=== PATIENT | female | born 1990 | race Caucasian/White ===

== ENCOUNTER 2024-05-05 20:47 | Emergency (ER) | payer OTHER ==
[~2024-05-05] VITALS: Ht 162.6 cm; Wt 134.0 kg
[~2024-05-05 20:47] MED LIST: INSU100I28 SQ
[2024-05-05 20:52] VITALS: BP 118/74; PULSE 110; RESP 16; TEMP 98.3; O2SAT 98
[2024-05-05] MEDS: ONDANSETRON 4MG ODT PO ONE (23:27)
[2024-05-06 00:14] LABS: BASOPHILS % 0.7 % (0.0-2.0); DIFFERENTIAL COMMENT 0; EOSINOPHILS % 4.7 % (0.0-5.0); HEMATOCRIT. 28.5 % (36.0-48.0); HEMOGLOBIN. 8.7 g/dL (12.0-16.0); LYMPHOCYTES % 15.4 % (20.0-50.0); MEAN CORPUSCULAR HEMOGLOBIN 23.9 pg (28.0-32.0); MEAN CORPUSCULAR HGB CONC 30.7 g/dL (31.0-37.0); MEAN CORPUSCULAR VOLUME 77.8 fL (81.0-99.0); MEAN PLATELET VOLUME 7.6 fl (7.4-10.4); MONOCYTES % 5.9 % (2.0-8.0); NEUTROPHILS % 73.3 % (40.0-76.0); PLATELET 577 x1000/uL (130-400); RED BLOOD CELL COUNT 3.66 mill/uL (4.2-5.4); RED CELL DISTRIBUTION WIDTH 16.7 % (11.6-14.6); WHITE BLOOD COUNT 11.6 x1000/uL (4.5-11.0)
[2024-05-06 00:19] LABS: CHLORIDE 110 mEq/L (98-107); SODIUM 137 mEq/L (136-145)
[2024-05-06 00:32] LABS: CALCIUM 7.8 mg/dL (8.7-10.4); CARBON DIOXIDE 17 mEq/L (21-32)
[2024-05-06 00:37] LABS: GLUCOSE 189 mg/dL (70-105); UREA NITROGEN BLOOD 42 mg/dL (9-23)
[2024-05-06 00:41] LABS: BETA HYDROXYBUTYRATE < 0.1 mMol/L (0.0-0.3); CREATININE 1.9 mg/dL (0.6-1.0)
[2024-05-06 01:15] LABS: HCG SCREEN NEGATIVE
== END 2024-05-06 04:29 | disposition home or self-care (01) ==
LOC: ER 20:47
DX: E11.65 Type 2 diabetes mellitus with hyperglycemia (principal); R11.2 Nausea with vomiting, unspecified; F15.10 Other stimulant abuse, uncomplicated; Z20.822 Contact with and (suspected) exposure to COVID-19
CPT/HCPCS: 99283; 87426; 80048; 82010; 82962; 84703; 85025; 87804 ×2; 36415; Q0162

== ENCOUNTER 2024-06-02 18:20 | Emergency (ER) | payer OTHER ==
[~2024-06-02] VITALS: Ht 162.6 cm; Wt 69.0 kg
[2024-06-02 18:22] VITALS: O2SAT 99
[2024-06-02] MEDS: KETOROLAC 30MG/ML VIAL IV STA (19:30)
[2024-06-02 19:41] LABS: BASOPHILS % 0.6 % (0.0-2.0); DIFFERENTIAL COMMENT 0; EOSINOPHILS % 3.2 % (0.0-5.0); HEMATOCRIT. 25.3 % (36.0-48.0); HEMOGLOBIN. 7.7 g/dL (12.0-16.0); LYMPHOCYTES % 18.8 % (20.0-50.0); MEAN CORPUSCULAR HEMOGLOBIN 23.8 pg (28.0-32.0); MEAN CORPUSCULAR HGB CONC 30.4 g/dL (31.0-37.0); MEAN CORPUSCULAR VOLUME 78.3 fL (81.0-99.0); MEAN PLATELET VOLUME 7.9 fl (7.4-10.4); MONOCYTES % 7.9 % (2.0-8.0); NEUTROPHILS % 69.5 % (40.0-76.0); PLATELET 466 x1000/uL (130-400); RED BLOOD CELL COUNT 3.23 mill/uL (4.2-5.4); RED CELL DISTRIBUTION WIDTH 19.5 % (11.6-14.6); WHITE BLOOD COUNT 9.1 x1000/uL (4.5-11.0)
[2024-06-02 19:45] LABS: CARBON DIOXIDE 24 mEq/L (21-32); CHLORIDE 108 mEq/L (98-107); POTASSIUM 4.5 mEq/L (3.5-5.1); SODIUM 135 mEq/L (136-145)
[2024-06-02 19:46] LABS: ADD RBC MORPHOLOGY YES
[2024-06-02] MEDS: SODIUM CHLORIDE 0.9% 1000ML BAG (SEPSIS BOLUS) IV ONE (19:46)
[2024-06-02] MEDS: METRONIDAZOLE 500 MG PREMIX 100 ML IV ONE (19:46)
[2024-06-02 19:51] LABS: GLUCOSE 285 mg/dL (70-105); UREA NITROGEN BLOOD 30 mg/dL (9-23)
[2024-06-02 19:52] LABS: ALANINE AMINOTRANSFERASE 9 IU/L (10-49); ASPARTATE AMINOTRANSFERASE 12 IU/L (<34)
[2024-06-02 19:53] LABS: ALBUMIN 3.2 g/dL (3.2-4.8); BILIRUBIN TOTAL 0.2 mg/dL (0.1-1.0); PROTEIN TOTAL 7.4 g/dL (6.0-8.3)
[2024-06-02 20:04] LABS: HCG SCREEN NEGATIVE
[2024-06-02 20:07] LABS: MICROCYTOSIS 1+; PLATELET ESTIMATE INCREASED
[2024-06-02 20:08] LABS: HYPOCHROMASIA 1+
[2024-06-02 20:31] LABS: CREATININE 1.3 mg/dL (0.6-1.0)
[2024-06-02] MEDS: CEFTRIAXONE 1GM/50ML 50 ML IV ONE (21:50)
[2024-06-02 21:57] LABS: CLARITY URINE CLEAR (CLEAR); COLOR URINE YELLOW (YELLOW); GLUCOSE URINE 3+ (NEGATIVE); KETONES URINE NEGATIVE (NEGATIVE); LEUKOCYTE ESTERASE URINE NEGATIVE (NEGATIVE); NITRITE URINE NEGATIVE (NEGATIVE); OCCULT BLOOD URINE TRACE (NEGATIVE); PROTEIN URINE 3+ (NEGATIVE); SPECIFIC GRAVITY URINE 1.026 (1.005-1.030); UROBILINOGEN URINE 0.2 E.U./dL (0.2-1.0)
[2024-06-02 22:09] LABS: BACTERIA URINE NONE SEEN; SQUAMOUS EPITHELIAL CELL URINE FEW /lpf (RARE/1+); WBC URINE 0-2 /hpf (0-2)
[2024-06-03] MEDS: KETOROLAC 15MG/ML VIAL IV ONE (01:33)
[2024-06-03] MEDS ORDERED: CLONIDINE 0.1MG TABLET PO PRN (02:15)
[2024-06-03] MEDS ORDERED: LORAZEPAM 0.5MG TABLET PO PRN (02:15)
[2024-06-03] MEDS ORDERED: DEXTROSE 50% WATER 50ML SYRINGE IV PRN (02:15)
[2024-06-03] MEDS ORDERED: DEXT 5%/0.9% NACL 1,000 ML IV NR (02:15)
[2024-06-03] MEDS ORDERED: IPRATROPIUM/ALBUTEROL 0.5-3(2.5)MG/3ML NEB HHN PRN (02:15)
[2024-06-03] MEDS ORDERED: ACETAMINOPHEN 325MG TABLET PO PRN ×2 (02:15)
[2024-06-03] MEDS ORDERED: ONDANSETRON HCL 4MG/2ML INJ IV PRN (02:15)
[2024-06-03] MEDS ORDERED: GUAIFENESIN 200MG/10ML SUGAR FREE UDC PO PRN (02:15)
[2024-06-03] MEDS ORDERED: DOCUSATE SODIUM 100MG CAPSULE PO PRN (02:15)
[2024-06-03 02:52] VITALS: BP 133/89; PULSE 105; RESP 19; TEMP 37.00296; O2SAT 100
[2024-06-03] MEDS ORDERED: INSULIN LISPRO 100 UNITS/ML SUBCUT SCH (08:20)
[2024-06-03] MEDS ORDERED: BLOOD SUGAR DIAGNOSTIC STRIP TEST SCH (09:00)
== END 2024-06-03 03:03 | disposition short-term general hospital (02) ==
LOC: ER 18:20
DX: R10.84 Generalized abdominal pain (principal); R11.2 Nausea with vomiting, unspecified; R19.7 Diarrhea, unspecified; N28.9 Disorder of kidney and ureter, unspecified; F17.210 Nicotine dependence, cigarettes, uncomplicated; F15.10 Other stimulant abuse, uncomplicated; E11.9 Type 2 diabetes mellitus without complications; Z20.822 Contact with and (suspected) exposure to COVID-19
CPT/HCPCS: 80053; 81003; 84703; 83605; 83690; 85025; 87040; 87086; 36415; 84145; 71045; 74176; 93005; 96367; 96365; 96375; 99285; 87426; 96376; J0696; J1885 ×2; J3490; J7030; Z7610 ×2